=== PATIENT | female | born 1975 | race African-American/Black ===

== ENCOUNTER 2018-10-16 10:29 | Outpatient (CLI) | payer OTHER ==
--- NOTE | 2018-10-16 11:12 | MMO ---
Bilateral MAMMO Bilat Screen [facility]. CLINICAL HISTORY: Patient is 43 years old and is seen for screening. The patient has the following family history of breast cancer: sister, at age 50. VIEWS: The views performed were: bilateral craniocaudal with tomosynthesis and bilateral mediolateral oblique with tomosynthesis. MAMMOGRAM FINDINGS: There are scattered fibroglandular densities. There are no suspicious masses, suspicious calcifications, or new areas of architectural distortion. IMPRESSION: THERE IS NO MAMMOGRAPHIC EVIDENCE OF MALIGNANCY. A ROUTINE FOLLOW-UP MAMMOGRAM IN 1 YEAR IS RECOMMENDED. THE RESULTS OF THIS EXAM WERE SENT TO THE PATIENT. ACR BI-RADS Category 1 - Negative MAMMOGRAPHY NOTE: 1. A negative mammogram report should not delay a biopsy if a dominant of clinically suspicious mass is present. 2. Approximately 10% to 15% of breast cancers are not detected by mammography. 3. Adenosis and dense breasts may obscure an underlying neoplasm. Reported by: JANICE COBIAN MD Electonically Signed: [id number]
== END 2018-10-16 10:30 | disposition home or self-care (01) ==
LOC: BICMAMMO 10:29
PROVIDERS: ATTEND Physician Assistant
DX: Z12.31 Encounter for screening mammogram for malignant neoplasm of breast (principal); Z80.3 Family history of malignant neoplasm of breast
CPT/HCPCS: 77063; 77067

== ENCOUNTER 2020-11-11 11:58 | Outpatient (CLI) | payer OTHER | END 2020-11-11 11:59 | disposition home or self-care (01) | LOC: BICMAMMO 11:58 | PROVIDERS: ATTEND Nurse Practitioner Family | DX: Z12.31 Encounter for screening mammogram for malignant neoplasm of breast (principal); Z80.3 Family history of malignant neoplasm of breast | CPT/HCPCS: 77063; 77067 ==

== ENCOUNTER 2021-03-07 13:59 | Outpatient (CLI) | payer BC | END 2021-03-07 14:00 | disposition home or self-care (01) | LOC: DTY/OP 13:59 | PROVIDERS: ATTEND Surgery | DX: E66.01 Morbid (severe) obesity due to excess calories (principal) | CPT/HCPCS: 97802 ==

== ENCOUNTER 2021-05-01 10:30 | Inpatient (IN) | payer BC ==
[2021-04-28 14:20] VITALS: BMI 48.4
[2021-05-04] MEDS ORDERED: Heparin 5,000 UNITS/ML VIAL ONE (10:42)
[2021-05-04] MEDS ORDERED: Lidocaine 1% w/Epinephrine 1:100K 30 ML VIAL ONE (11:05)
[2021-05-04] MEDS ORDERED: Bupivacaine 0.25% 10 ML VIAL ONE ×3 (11:05→13:21)
[2021-05-04] MEDS ORDERED: Lidocaine 2% Jelly 5 ML TUBE ONE (11:07)
[2021-05-04] MEDS ORDERED: SUGAMMADEX SODIUM 200 MG/2 ML VIAL ONE (11:07)
[2021-05-04] MEDS ORDERED: Fentanyl 100 MCG/2 ML VIAL ONE ×2 (11:07→13:43)
[2021-05-04] MEDS ORDERED: ceFAZolin 2 GM/Dextrose 50 ML IVPB ONE (11:08)
[2021-05-04] MEDS ORDERED: Hydrocodone-Acetamin 15 ML UDCUP PO PRN ×2 (13:06→13:28)
[2021-05-04] MEDS ORDERED: diphenhydrAMINE 50 MG/ML VIAL IVP PRN ×2 (13:06→13:19)
[2021-05-04] MEDS ORDERED: hydrALAZINE 20 MG/ML VIAL SLOW IVP PRN (13:06)
[2021-05-04] MEDS ORDERED: Ondansetron PF 4 MG/2 ML Vial IVP PRN ×2 (13:06→13:19)
[2021-05-04] MEDS ORDERED: Dextrose 5% in Water 1,000 ML IV PRN (13:06)
[2021-05-04] MEDS ORDERED: Promethazine HCl 25 MG/ML VIAL IM PRN ×3 (13:06→13:19)
[2021-05-04] MEDS ORDERED: Dextrose 50% Abboject 50 ML SYRINGE SLOW IVP PRN (13:06)
[2021-05-04] MEDS ORDERED: Ondansetron HCl/PF 4 MG/2 ML Vial IVP PRN (13:16)
[2021-05-04] MEDS ORDERED: Promethazine HCl 25 MG/ML VIAL IVPB PRN (13:16)
[2021-05-04] MEDS ORDERED: diphenhydrAMINE 50 MG/ML VIAL IM PRN (13:19)
[2021-05-04] MEDS ORDERED: Naloxone HCl 0.4 mg/ml Vial IV PRN (13:19)
[2021-05-04] MEDS ORDERED: Zolpidem Tartrate 5 MG TAB PO PRN (13:19)
[2021-05-04] MEDS ORDERED: fentaNYL Citrate/PF 2,000 MCG in Sodium Chloride 0.9% 60 ML IV PRN (13:19)
[2021-05-04] MEDS ORDERED: diphenhydrAMINE 25 MG CAP PO PRN (13:19)
[2021-05-04] MEDS ORDERED: Communication Order-Pharmacy FS SCH (13:30)
[2021-05-04] MEDS: D5 1/2 NS w/20 mEq KCL 1,000 ML IV SCH ×2 (15:23→20:57)
[2021-05-05 05:00] LABS: #Monocytes 1.1 thou/uL (0.11-0.59); #Neutrophils 10.4 thou/uL (1.40-6.50); %Basophils 0.1 % (0.0-1.0); %Eosinophils 0.1 % (0.0-10.0); %Lymphocytes 14.7 % (21.0-51.0); %Monocytes 7.8 % (0.0-10.0); %Neutrophils 77.3 % (42.0-75.0); Hemoglobin 12.3 g/dL (12.0-16.0); Mean Corpuscular HGB CONC 32.5 g/dL (32.0-36.0); Mean Corpuscular Hemoglobin 30.7 pg (27.0-31.0); Mean Corpuscular Volume 94.6 fL (78.0-98.0); Mean Platelet Volume 8.5 fL (7.4-10.4); Platelet Count 217 thou/uL (130-400); RBC Distribution Width 12.9 % (11.5-14.5); White Blood Cell (WBC) Count 13.4 thou/uL (4.8-10.8)
[2021-05-05 05:25] LABS: Anion Gap 10 mmol/L (10-20); BUN (Urea Nitrogen) 11 mg/dL (7.0-18.7); Calc. Creatinine Clearance 176 mL/min (70-130); Calcium 7.8 mg/dL (7.8-10.44); Carbon Dioxide 21 mmol/L (22-29); Chloride 106 mmol/L (98-107); Glucose 134 mg/dL (70-105); Potassium 3.9 mmol/L (3.5-5.1); Sodium 133 mmol/L (136-145)
[2021-05-05] MEDS: D5 1/2 NS w/20 mEq KCL 1,000 ML IV SCH (05:31)
[2021-05-05 08:08] VITALS: BP 132/86; TEMP 98.7
[2021-05-05] MEDS ORDERED: Pantoprazole 40 MG VIAL IVP SCH (09:00)
[2021-05-05] MEDS ORDERED: Enoxaparin Sodium 40 MG/0.4 ML SYRINGE SC SCH (09:00)
== END 2021-05-05 11:40 | disposition home or self-care (01) | DRG 621 ==
LOC: SURG A 05-04 08:40 → SJJU 05-04 14:41
PROVIDERS: ADMIT Surgery; ATTEND Surgery
PROC: 0DB64Z3 Excision of Stomach, Percutaneous Endoscopic Approach, Vertical (ICD-10-PCS; principal; 2021-05-04)
PROC: 8E0W4CZ Robotic Assisted Procedure of Trunk Region, Percutaneous Endoscopic Approach (ICD-10-PCS; 2021-05-04)
DX: E66.01 Morbid (severe) obesity due to excess calories (principal); F41.9 Anxiety disorder, unspecified; Z20.822 Contact with and (suspected) exposure to COVID-19; Z68.42 Body mass index [BMI] 45.0-49.9, adult
CPT/HCPCS: 36415; 71046; 80048; 80053; 83036; 85025; 88307; 93005; 93010; C9113; J0690; J1644; J1650; J3010; J3480; S0020; U0003; U0005

== ENCOUNTER 2023-05-15 11:31 | Outpatient (CLI) | payer BC | END 2023-05-15 11:32 | disposition home or self-care (01) | LOC: BICMAMMO 11:31 | PROVIDERS: ATTEND Physician Assistant | DX: Z12.31 Encounter for screening mammogram for malignant neoplasm of breast (principal); Z80.3 Family history of malignant neoplasm of breast | CPT/HCPCS: 77063; 77067 ==